=== PATIENT | male | born 1945 | race Caucasian/White ===

== ENCOUNTER → 2017-03-06 | Outpatient (CLI) | payer OTHER ==
[~2017-03-06] MED LIST: ASPI-1085 PO; BILB30CA2 PO; CHOL100055 PO; GRAP50CA5 PO; LISI-127 PO; MULT1CAP PO; OMEG1CAP79 PO; PRAV40TA3 PO; PYGEUM PO; TAMS0.4C47 PO; [UNRECOGNIZED DRUG - CODE] PO
== END ==
LOC: IMA.MDS 14:31
PROVIDERS: ATTEND Family Medicine
DX: M17.0 Bilateral primary osteoarthritis of knee (principal)

== ENCOUNTER 2017-11-10 07:30 | Inpatient (IN) ==
[2017-11-19] MEDS ORDERED: FAMOTIDINE PB 20 MG/50 ML BAG IV ONE (06:00)
[2017-11-19] MEDS ORDERED: METOCLOPRAMIDE 10mg/2ml INJECTION IVP ONE (06:00)
[2017-11-19] MEDS ORDERED: MELOXICAM 15 MG TABLET PO ONE (06:00)
[2017-11-19] MEDS ORDERED: TRANEXAMIC ACID 1,000 MG in NS 100 ML IV ONE ×2 (06:00→07:00)
[2017-11-19] MEDS ORDERED: DEXAMETHASONE 4 MG/ML INJECTION IVP ONE (06:00)
[2017-11-19] MEDS ORDERED: LIDOCAINE 1% (10mg/ml) 2mL INJ PF SDV ID ONE (06:00)
[2017-11-19] MEDS ORDERED: ONDANSETRON 4 MG/2 ML INJECTION IVP ONE (06:00)
[2017-11-19] MEDS ORDERED: ACETAMINOPHEN 500 MG TABLET PO ONE (06:00)
[2017-11-19] MEDS ORDERED: EPINEPHrine PF 0.25 MG, BUPIVACAINE 0.25% PF 30 ML, MORPHINE SULFATE 15 MG, KETOROLAC I... OPSITE ONE (08:00)
[2017-11-19 09:32] VITALS: BMI 26.4
[2017-11-19] MEDS: LR 1,000 ML IV SCH ×2 (10:03→13:00)
[2017-11-19] MEDS: NOZIN NASAL SWAB NAS SCH ×5 (10:05→22:09)
--- NOTE | 2017-11-19 10:28 | Anesthesia Preoperative Report ---
Anesthesia Preoperative Record - Date and Time Date: 11/19/17 Preoperative Diagnosis: Rt YORDY M16.11 Proposed Procedure: Right THR NPO Since Date: 11/19/17 NPO Since Time: 00:00 Allergies/Adverse Reactions: Allergies Allergy/AdvReac Type Severity Reaction Status Date / Time midazolam AdvReac Unknown N/V Verified 11/19/17 09:56 - Vital Signs Vital Signs: Temperature 97.9 F 11/19/17 09:31 Pulse Rate 69 11/19/17 09:31 Respiratory Rate 13 11/19/17 09:31 Blood Pressure 126/78 11/19/17 09:31 Pulse Oximetry 94 11/19/17 09:31 Height and Weight: Height 6 ft Weight 88.4 kg Body Mass Index 26.4 - Medications Inpatient Medications: Current Medications Cefazolin Sodium (Kefzol) 2 g IVP PREOP ONE Stop: 11/19/17 11:01 Lactated Ringer's (Lactated Ringers) 1,000 mls @ 50 mls/hr IV .Q20H [facility] Last Admin: 11/19/17 10:03 Dose: 50 mls/hr Isopropyl Alcohol (Nozin Nasal Swab) 1 each TERI Q1M JOSÉ MIGUEL Stop: 11/19/17 14:48 Last Admin: 11/19/17 10:07 Dose: 1 each Sodium Chloride (Iv Flush) 10 - 80 ml IV PRN PRN PRN Reason: [place] Home Medications: Home Medications Medication Instructions Recorded Confirmed Type Lisinopril 10 mg PO Q2D #0 11/22/10 11/19/17 History Aspirin [Aspirin EC] 81 mg PO DAILY #0 tab 10/29/16 11/19/17 History Bilberry Fruit Extract [Bilberry 60 mg PO DAILY #0 10/29/16 11/19/17 History Extract] Cholecalciferol (Vitamin D3) 1 cap PO DAILY #0 10/29/16 10/22/17 History (Vitamin D) Multivit with Minerals/Herbs 1 tab PO DAILY #0 10/29/16 11/19/17 History [Men's Biomultiple Tablet] [place]-3/Dha/Epa/Fish Oil [Fish Oil 1,000 mg PO DAILY #0 cap 10/29/16 11/19/17 History 1,000 mg Softgel] Tamsulosin HCl 0.4 mg PO HS #0 10/29/16 11/19/17 History Is Patient on Beta Naomi?: No - Medical History Respiratory: Reports: Other (h/o velazquez's lung per h&p) Cardiovascular: Reports: Hypertension Gastrointestional: Reports: Gastroesophageal Reflux Disease (occasional no nocturnal sx) Neuro/Musculoskeletal: Reports: HX.MS.OSAR (hip, knees, hands) Other History: Reports: Anesthesia Reactions (nausea with Versed) - Surgical History GI Surgery/Treatments: Reports: Colonoscopy Surgery/Treatment: REPORT: Transurethral Resection (TURP) Musculoskeletal Surgery/Tx: Reports: Knee Arthroscopy (left and right), Total Knee Replacement (left X2) Reproductive Surgery/Treatment: Reports: Vasectomy Anesthesia Reactions: Nausea and Vomiting (with versed) Hx Family Anesthesia Reaction: No History of Motion Sickness: No - Social History Smoking Status: Never smoker Substance Use Type: does not use Alcohol Intake Frequency: does not drink - Pertinent Findings EKG: Sinus Rhythm - Physical Exam Respiratory Exam: Present: lungs clear, bilateral breath sounds equal Cardiovascular Exam: Present: regular rate and rhythm, no murmur - Airway Assessment Mallampati Score: III TMD: 2 Fingerbreadths Neck Extension: good Overall Assessment: may be difficult intubation (small mouth opening) - ASA ASA Score: 2 - Plan Anesthesia: General TIVA, General Inhalation Gases - Discussion Discussion: Discussed risks/options/alternatives of anesthesia and questions answered. Patient consents. Nursing pain assessment noted. Present for Discussion: spouse Attestation Statement: Prior to the delivery of any anesthetic medication, I examined the patient, developed the plan, obtained the patient's consent and discussed the risk and benefits of the procedure with the patient/guardian. - Additional Information Seen by Anesthesia: Yes
[2017-11-19] MEDS ORDERED: VANCOMYCIN 1,000 MG INJECTION ONE (10:41)
[2017-11-19] MEDS ORDERED: ANESTHESIA MIXTURE 50 ML IV ONE (10:45)
[2017-11-19] MEDS ORDERED: FentaNYL 100 MCG/2 ML INJECTION ONE (10:47)
[2017-11-19] MEDS ORDERED: PROPOFOL 500 MG/50 ML VIAL ONE (10:52)
[2017-11-19] MEDS ORDERED: ROCURONIUM 50 MG/5 ML INJECTION IVP ONE (10:52)
[2017-11-19] MEDS ORDERED: LIDOCAINE 2% (100mg/5mL) PF 5ml vl ONE (10:52)
[2017-11-19] MEDS ORDERED: CEFAZOLIN 1 G INJECTION IVP ONE (11:00)
[2017-11-19] MEDS ORDERED: DESFLURANE 240ml LIQUID IH ONE (11:53)
[2017-11-19] MEDS ORDERED: PHENYLEPHRINE INJ 10 MG/ML VIAL IV ONE (12:56)
--- NOTE | 2017-11-19 13:03 | Operative Note ---
- Procedure Preoperative Diagnosis: Right hip primary degenerative joint disease Postoperative Diagnosis: Same as preoperative diagnosis. Surgeon: Leatha Trevizo MD Counter Hand: Christiano Quintana Complications: None. Anesthesia: General Estimated Blood Loss: See Anesthesia Record. Fluids: Please see Anesthesia Record. Description of Procedure: Mr. Luna and his right hip were identified and marked in the preoperative holding area. He was brought back to the operating suite and spinal anesthetic was administered. He was then placed in a lateral decubitus position with his right hip up. The right lower extremity was prepped and draped in my normal sterile fashion. Timeout was performed. The Hookit robotic arm was used to assist with the surgery. A pelvic array was placed into the iliac crest through three small incisions. A direct superior approach was utilized. An approximately 13 cm incision was made in the skin and dissection carried down to the muscle fascia which was then split in line with skin incision. The short external rotators were identified and tagged and detached. A capsulotomy was performed and the hip dislocated. A femoral neck osteotomy was performed at the pre-templated level measuring down from the femoral head 54 mm. The head was removed and acetabulum exposed. He had very large osteophytes both anteriorly and posteriorly. The posterior osteophytes broke off in the acetabulum during a hip dislocation. Labrum was removed. The acetabulum was then registered with the robot. The robotic arm was then used to ream with a 57 reamer. The robot then was again used to place a 58 Trident cup in 40 of tilt and 25 of anteversion. A liner was then placed. The proximal femur was exposed and prepared with a cookie cutter followed by reaming and broaching to a size 6. We trialed with a 0 head. He was very stable but long so retired with a -5 head and this was much better. He felt stable at the knees and was just 1 mm long compared to the opposite hip. After thorough irrigation a final Accolade 2 size 6 stem with 127 neck was placed. Leg length and offset were checked with the robot and were good. A final -5 ceramic 36 mm head was placed and the hip reduced. Betadine solution was used to irrigate throughout the case. It was followed by normal saline irrigation. Joint cocktail was injected throughout soft tissue. The capsulotomy was repaired with Ethibond. Short external rotators were also repaired with Ethibond. 1 g of vancomycin powder was placed into the wound. The muscle fascia was then repaired with #1 Vicryl. I then left my marketing communications assistant to close the subcutaneous tissue with 2-0 Vicryl followed by running 4-0 Monocryl skin followed by Dermabond and a sterile dressing. The patient with any placed back into supine position and taken to recovery room in the care of anesthesia.
[2017-11-19] MEDS ORDERED: GLYCOPYRROLATE 0.4 MG/2 ML INJECTION ONE (13:11)
[2017-11-19] MEDS ORDERED: NEOSTIGMINE 10 MG/10 ML INJECTION ONE (13:11)
[2017-11-19] MEDS ORDERED: MORPHINE SULFATE 10 MG/ML VIAL ONE (13:23)
[2017-11-19] MEDS ORDERED: DiphenhydrAMINE 50 MG/ML INJECTION IVP PRN ×2 (13:41→14:26)
[2017-11-19] MEDS ORDERED: ONDANSETRON 4 MG/2 ML INJECTION IVP PRN ×2 (13:41→14:26)
[2017-11-19] MEDS: MORPHINE SULFATE 10 MG/ML VIAL IVP PRN ×2 (13:49→14:03)
--- NOTE | 2017-11-19 14:20 | Anesthesia Postoperative Note ---
- Date and Time Date: 11/19/17 Time: 14:19 - Status Patient Participated in Evaluation: Patient Participated in Person Vital Signs: Temperature 97.8 F 11/19/17 12:26 Pulse Rate 59 L 11/19/17 14:10 Respiratory Rate 16 11/19/17 14:10 Blood Pressure 111/58 11/19/17 14:10 Pulse Oximetry 93 11/19/17 14:10 Respiratory Function: Airway Patent Cardiovascular Function: Regular Pulse EKG: Sinus Rhythm Mental Status: Alert and Oriented Pain Intensity: 4 Hydration: IV Infusing Complications During Recover: None Apparent - Follow-Up Instructions Instructions: Per Surgeon
[2017-11-19] MEDS ORDERED: NAPROXEN 220 MG TABLET PO PRN (14:26)
[2017-11-19] MEDS ORDERED: NOZIN NASAL SWAB NAS ONE (14:26)
[2017-11-19] MEDS ORDERED: Oxycodone *IR* 5 MG TABLET PO PRN (14:26)
[2017-11-19] MEDS ORDERED: DiphenhydrAMINE 25 MG CAPSULE PO PRN (14:26)
[2017-11-19] MEDS ORDERED: LORazepam 1 MG TABLET PO PRN (14:26)
[2017-11-19] MEDS ORDERED: SALINE FLUSH 10ml SYRINGE IV PRN (14:31)
[2017-11-19] MEDS: NS 1,000 ML IV SCH (14:36)
--- NOTE | 2017-11-19 14:38 | XRay Report ---
Indication: postoperative image PROCEDURE: XR pelvis w/ 1 view RT hip: Encounter: Initial Comparison: October 19, 2017 Findings: Postoperative changes of right total hip replacement are seen. There is expected postoperative subcutaneous gas. No evidence of hardware failure or acute fracture. There is an oblique lucency seen in the posterior cortex of the proximal femoral diaphysis on the crosstable lateral view without cortical step-off. This is felt to represent a nutrient vessel. No retained radiopaque surgical instruments or sponges seen. Impression: New right total hip prosthesis without evidence of immediate complication. .
[2017-11-19] MEDS: DEXAMETHASONE 20 MG/5 ML INJECTION IVP SCH ×2 (14:44→22:10)
[2017-11-19] MEDS ORDERED: PNEUMOCOCCAL VAC ADMIN CHARGE INJ ONE (15:15)
[2017-11-19] MEDS ORDERED: PNEUMOCOCCAL 23 VACCINE 0.5ml INJECTION IM ONE (15:39)
[2017-11-19] MEDS: ACETAMINOPHEN 325 MG TABLET PO SCH ×2 (16:50→22:09)
[2017-11-19] MEDS: CEFAZOLIN 2 G in NS 100 ML IV SCH (18:25)
[2017-11-19] MEDS ORDERED: SCOPOLAMINE 1mg/3 days PATCH TD ONE (19:05)
[2017-11-19] MEDS ORDERED: SENNOSIDES 8.6 MG TABLET PO SCH (21:00)
[2017-11-19] MEDS: DOCUSATE SODIUM 100 MG CAPSULE PO SCH (22:10)
[2017-11-19] MEDS: ASPIRIN *EC* 81 MG TABLET PO SCH (22:10)
[2017-11-20] MEDS: NS 1,000 ML IV SCH ×2 (02:50→16:03)
[2017-11-20] MEDS: CEFAZOLIN 2 G in NS 100 ML IV SCH (02:57)
--- NOTE | 2017-11-20 04:07 | Consult Note ---
Consult Information - Data of Consult Consult date: 11/19/17 Requesting Physician: Beto Trevizo MD Primary Care Provider: Randy Escalera MD Family Provider: Randy Escalera MD - Consult Narrative Reason for consult: non sustained v tach History of present illness: This is a 72 y/o male who is relatively healthy who presents for an elective total right hip. The operative course was unremarkable. Post operatively the patient had a short run of non sustained wide complex tachycardia. No sx. The patient states that 2 or 3 years ago he had an episode of irregular heart rate and was evaluated including a stress test that was negative. He wore a holter moniter that was normal. At this time ortho attending has asked internal medicine to assess patient and to make further recommendations Past Medical History Patient Stated Medical History Hypertension Yes Sleep Apnea No Other Respiratory Yes: h/o velazquez's lung per h&p Gastroesophageal Reflux Yes: occasional no nocturnal sx Disease Hx Benign Prostatic Yes Hyperplasia Osteoarthritis Yes: hip, knees, hands Anesthesia Reactions Yes: nausea with Versed [facility] Medical History (Last Reviewed 10/19/17 @ 15:55 by Beto Trevizo MD) HTN (hypertension) (Acute Medical) Osteoarthritis (Acute Medical) Surgical History: R TKA replacement x2; L TKA x2; prostate surgery Family History: Family History (Last Reviewed 10/19/17 @ 15:55 by Beto Trevizo MD) Father Pacemaker Arthritis Family History Updates: as noted - Social History Smoking status: Never smoker Substance use type: does not use Alcohol intake frequency: does not drink Housing: house Household members: spouse Current occupational status: employed Current residence: Apartment/Private Home Review of Systems Review of systems: pateint denies headache, mild sore throat, no neck or jaw pain, no chest pain, no pnd, no orthopnea, no mcnally, patient is very active and continues to work out at least 3 days a week. Patient denies abdomen pain, no nausea/vomiting, no change inbm or urine. hx of BPH with TURP. no neuro concerns, no skin rashes. 12 point ROS neg except for outlined above. Does have pain to his right hip Medications Home Medications Medication Instructions Recorded Confirmed Type Lisinopril 10 mg PO Q2D #0 11/22/10 11/19/17 History Aspirin [Aspirin EC] 81 mg PO DAILY #0 tab 10/29/16 11/19/17 History Bilberry Fruit Extract [Bilberry 60 mg PO DAILY #0 10/29/16 11/19/17 History Extract] Cholecalciferol (Vitamin D3) 1 cap PO DAILY #0 10/29/16 10/22/17 History (Vitamin D) Multivit with Minerals/Herbs 1 tab PO DAILY #0 10/29/16 11/19/17 History [Men's Biomultiple Tablet] [place]-3/Dha/Epa/Fish Oil [Fish Oil 1,000 mg PO DAILY #0 cap 10/29/16 11/19/17 History 1,000 mg Softgel] Tamsulosin HCl 0.4 mg PO HS #0 10/29/16 11/19/17 History Allergies Allergy/AdvReac Type Severity Reaction Status Date / Time midazolam AdvReac Unknown N/V Verified 11/19/17 09:56 Exam Vital Signs: Temperature 97.2 F 11/19/17 14:40 Pulse Rate 93 11/19/17 23:07 Respiratory Rate 16 11/19/17 23:07 Blood Pressure 117/72 11/19/17 23:07 Pulse Oximetry 96 11/19/17 23:07 Telemetry Rhythm: Sinus Rhythm Height/Weight/BMI: Height 1.83 m Weight 88.9 kg Body Mass Index 26.4 - Constitutional Present: mild distress, well nourished, well developed, average body habitus, cooperative - Routine HEENT Exam Head: Present: normocephalic, atraumatic Eye: Present: EOMI, conjunctivae pink. Absent: scleral injection ENT: Present: mucous membranes moist - Routine Neck Exam Present: supple, full ROM - Routine Respiratory Exam Present: CTA bilaterally. Absent: rales, respiratory distress, rhonchi, stridor , wheezes - Routine Cardiovascular Exam Present: RRR, no murmur. Absent: S3 - Routine Abdominal Exam Present: soft, normoactive bowel sounds, non distended, non tender - Routine Extremities Exam Present: no edema. Absent: cyanosis Comments: dressing on right hip, not taken down - Routine Skin Exam Present: intact - Routine Neurological Exam Present: alert, oriented X3, CN II-XII intact, moving all extremities, normal tone, vision grossly intact, hearing grossly intact. Absent: motor deficit, abnormal gait - Routine Psychiatric Exam Present: normal affect, normal thought process Results - Labs CBC & Chem 7: 01/19/18 04:07 11/20/17 04:07 - ECG Data Tracing #1 sinus, with normal QRS. Assessment and Plan (1) Non-sustained ventricular tachycardia Current visit: Yes Status: Acute (2) Hypertension Current visit: No Status: Acute (3) Primary osteoarthritis of right hip Current visit: No Status: Acute (4) BPH (benign prostatic hyperplasia) Current visit: No Status: Acute (5) Status post total hip replacement, right Current visit: Yes Status: Acute Assessment and Plan: 1. non sustained wide complex tachycardia acute not POA: will make sure labs in am including magnesium. continue telemetry monitoring cycle enzymes, reassess in the am. hx of arrhythmia in the past not captured. patient with hx of HTN. patient will need echo at some point in time with stress test if structurally intact. reassess and consider card cx outpatient 2. s/p right total hip acute POA: per ortho 3. HTN chronic POA: on ACEinhib. monitor blood pressure and use as indicated 4. BPH chronic POA: monitor with narcotics. restart flomax when can 5. DVT ppx; per ortho DVT Prophylaxis: SCD's, other (ASA) Resuscitation Status: Full Code - Physician Narrative Physician: Emily Woodard MD, Kiara Schmitt MD Narrative: Date: 11/20/17 Time: 1100 INdication for consult-wide complex tachycardia HPI- Mr Luna had an elective R-YORDY on 11/19 followed by about 8 assx runs of wide complex tachycardia yesterday evening. Most of the events occurred over a 4 min period of time with rates of 140-150, the longest ws 60 seconds long. Pt experienced emesis at about the same time and reports feeling cold and shaking/ banging his feet together to stay awake. He denies CP, dyspnea, palpitations, or lightheadness. He has a hx of an irregular heart rate evaluated by Dr. Carbajal a couple years ago with an event monitor which was neg per pt report. He also had a stress test which was negative. This am pt feels fine and reports good pain control; he hopes to go home today. PMH/SH/FH/ROS-as previously reported by Dr. Gallego PE- NAD, alert, fluent speech; 118/70 70 97.0 PER, EOMI, conj clear, sclera anicteric, oroph clear resp non-labored, good airflow, breath sounds clear RRR, S1S2 Abd soft, non-tender, diminished bowel sounds ext without edema CN 3-12 grossly intact, sens intact to light touch x 4 ext cooperative, calm K 4.7, Mg 2.2, troponin <0.012, Hbg 13.8 12 lead ECG with NSR, rare PAC, no acute changes by my review A/P wide complex tachycardia hx HTN hyperglycemia Multiple strips reviewed by myself and d/w cardiology. Some are clearly artifact but others are less clear. Electrolytes OK Cardiology to see, echo ordered troponin and A1C added to am labs d/w Dr. Trevizo. Hospital Course Summary Disclaimer: The visit summary below is not to be considered part of the above Progress Note.
[2017-11-20] MEDS: NOZIN NASAL SWAB NAS SCH ×2 (05:40→13:16)
[2017-11-20 08:11] VITALS: RESP 16
[2017-11-20] MEDS: DOCUSATE SODIUM 100 MG CAPSULE PO SCH (08:20)
[2017-11-20] MEDS: ACETAMINOPHEN 325 MG TABLET PO SCH ×3 (08:21→17:10)
[2017-11-20] MEDS: ASPIRIN *EC* 81 MG TABLET PO SCH (08:22)
--- NOTE | 2017-11-20 08:56 | Orthopedic Progress Note ---
Date: Date: 11/20/17 Time: 852 Subjective/Severity of Illness: Mr Luna is doing great this AM. He had a run of V-tach and the hospitalist service evaluated him. His troponin was normal and had no further events. Denies ever having any CP or dyspnea. He has been up with good tolerance. Dressing is dry. Labs stable. He is hopeful to go home today. Orthopedic Objective PO Vital signs: Temperature 97.0 F 11/20/17 08:00 Pulse Rate 70 11/20/17 08:00 Respiratory Rate 16 11/20/17 08:00 Blood Pressure 118/68 11/20/17 08:00 Pulse Oximetry 95 11/20/17 08:00 Height and Weight: Height 6 ft Weight 195 lb 15.855 oz Body Mass Index 26.4 - Constitutional General Appearance: Present: alert, cooperative, no acute distress - Respiratory Exam Present: non-labored - Extremities Exam Extremities: Present: pulses intact. Absent: calf tenderness - Surgical Site Incision: Mepilex dressing intact, no drainage - Neurological Exam Present: no deficits - Psychiatric Exam Present: alert, normal affect - Labs Result Diagrams: 11/20/17 04:07 11/20/17 04:07 Abnormal lab results 11/19/17 11/19/17 11/20/17 Range/Units 20:53 20:53 04:07 WBC 14.5 H (4.5-11.0) T/MM3 Neutrophils % (Manual) 98.0 H (33-66) % Lymphocytes % (Manual) 2.0 L (23-45) % Neutrophils # (Manual) 14.2 H (1.8-7.7) T/MM3 Lymphocytes # (Manual) 0.3 L (1-4.8) T/MM3 Potassium 5.1 H (3.6-5) MEQ/L BUN 28.0 H 27.0 H (9-20) MG/DL BUN/Creatinine Ratio 28 H 30 H (6-26) RATIO Glucose 195 H 156 H (75-110) MG/DL H & H 11/19/17 11/20/17 Range/Units 20:53 04:07 Hgb 14.9 13.8 (13.5-17.5) GM/DL Hct 44.9 41.7 (41-53) % Orthopedic Assessment and Plan (1) Primary osteoarthritis of right hip Status: Acute Assessment and Plan: Aspirin protocol for VTE prophylaxis. SCD's. PT/OT services to improve independent function. Hospitalist service to evaluate cardiac status and give recommendations. Cont telemetry for now. F/U in ortho clinic 3 weeks. Out pt therapy has been arranged. Discharge Planning per Case Management. - Anticoagulation Therapy Anticoagulation: ASA 81 mg PO BID x6 weeks Hospital Course Summary Disclaimer: The visit summary below is not to be considered part of the above Progress Note.
[2017-11-20] MEDS ORDERED: POLYETHYL GLYCOL 3350 17gm PACKET PO SCH (09:00)
--- NOTE | 2017-11-20 13:01 | Cardiology Consult Note ---
<Bharati Borjas - Last Filed: 11/24/17 10:41> History of Present Illness Consult date: 11/20/17 Requesting physician: Emily Woodard Chief complaint: telemetry changes History of present illness: Marin is a 72 year old male who is known to Dr. Carbajal with a history of palpitations, HTN and HLD who recently underwent an elective total right hip replacement. The operative course was unremarkable. Post operatively the patient had a short run of non sustained wide complex tachycardia. No sx. He wore a DORIS monitor in November of 2015 which showed SR with occasional asymptomatic PVCs, one couplet. Echo at that time showed EF 65%, mild LVH, NWMA , diastolic dysfunction, mild LAE, trace MR/PI, PAP 36mmHg. PFS Patient Stated Medical History Hypertension Yes Sleep Apnea No Other Respiratory Yes: h/o velazquez's lung per h&p Gastroesophageal Reflux Yes: occasional no nocturnal sx Disease Hx Benign Prostatic Yes Hyperplasia Osteoarthritis Yes: hip, knees, hands Anesthesia Reactions Yes: nausea with Versed Clinic Medical History (Last Reviewed 10/19/17 @ 15:55 by Beto Trevizo MD) HTN (hypertension) (Acute Medical) Osteoarthritis (Acute Medical) Surgical History: R TKA replacement x2; L TKA x2; prostate surgery Family History: Family History (Last Reviewed 10/19/17 @ 15:55 by Beto Trevizo MD) Father Pacemaker Arthritis Paternal uncle - MD - Social History Smoking status: Never smoker Substance use type: does not use Alcohol intake frequency: does not drink Household members: spouse Current residence: Apartment/Private Home Medications Home Medications Medication Instructions Recorded Confirmed Type Lisinopril 10 mg PO Q2D #0 11/22/10 11/19/17 History Aspirin [Aspirin EC] 81 mg PO DAILY #0 tab 10/29/16 11/19/17 History Bilberry Fruit Extract [Bilberry 60 mg PO DAILY #0 10/29/16 11/19/17 History Extract] Cholecalciferol (Vitamin D3) 1 cap PO DAILY #0 10/29/16 10/22/17 History (Vitamin D) Multivit with Minerals/Herbs 1 tab PO DAILY #0 10/29/16 11/19/17 History [Men's Biomultiple Tablet] [place]-3/Dha/Epa/Fish Oil [Fish Oil 1,000 mg PO DAILY #0 cap 10/29/16 11/19/17 History 1,000 mg Softgel] Tamsulosin HCl 0.4 mg PO HS #0 10/29/16 11/19/17 History Allergies Allergy/AdvReac Type Severity Reaction Status Date / Time midazolam AdvReac Unknown N/V Verified 11/19/17 09:56 Exam Vital signs: Temperature 97.0 F 11/20/17 11:39 Pulse Rate 64 11/20/17 11:39 Respiratory Rate 16 11/20/17 11:39 Blood Pressure 127/65 11/20/17 11:39 Pulse Oximetry 97 11/20/17 11:39 Results 11/20/17 04:07 11/20/17 04:07 Cardiac Enzymes 11/19/17 11/20/17 Range/Units 20:53 04:05 AST 47 (17-59) U/L Troponin I < 0.012 < 0.012 (0-0.12) ng/ml CBC 11/19/17 11/20/17 Range/Units 20:53 04:07 WBC 14.5 H (4.5-11.0) T/MM3 RBC 4.89 (4.50-5.90) M/MM3 Hgb 14.9 13.8 (13.5-17.5) GM/DL Hct 44.9 41.7 (41-53) % Plt Count 229 (130-400) T/MM3 Neut # (Auto) Not performed Lymph # (Auto) Not performed [place] # (Auto) Not performed Eos # (Auto) Not performed Baso # (Auto) Not performed Comprehensive Metabolic Panel 11/19/17 11/20/17 Range/Units 20:53 04:07 Sodium 140 140 (134-144) MEQ/L Potassium 5.1 H 4.7 (3.6-5) MEQ/L Chloride 105 105 (98-107) MEQ/L Carbon Dioxide 25 27 (22-30) MEQ/L BUN 28.0 H 27.0 H (9-20) MG/DL Creatinine 1.0 0.9 (0.8-1.5) MG/DL Glucose 195 H 156 H (75-110) MG/DL Calcium 9.3 9.0 (8.4-10.2) MG/DL AST 47 (17-59) U/L ALT 49 (21-72) U/L Alkaline Phosphatase 97 (38-126) U/L Total Protein 7.4 (6.3-8.2) G/DL Albumin 4.2 (3.5-5.0) G/DL Intake and Output 11/19/17 11/20/17 11/20/17 22:59 06:59 14:59 Intake Total 905.333 / 416.594 0505.333 / 5916.552 4422.333 / 1029.333 Output Total 1050 / 1050 Balance -144.667 / -719.895 8213.333 / 0887.986 4760.333 / 1029.333 Intake: IV 405.333 / 405.333 741.333 / 741.333 321.333 / 321.333 Cefazolin 2 g In Ns 100 ml @ 100 / 100 100 / 100 200 mls/hr IV Q8H JOSÉ MIGUEL Rx#: [id number] Ns 1,000 ml @ 80 mls/hr IV . 305.333 / 305.333 641.333 / 641.333 321.333 / 321.333 [id number] JOSÉ MIGUEL Rx#:[id number] Oral 500 / 500 300 / 300 708 / 708 Output: Emesis 500 / 500 Urine Amount (Catheter) 550 / 550 Other: Urine Appearance Clear Urine Color Dark Yellow Urine Odor Normal Emesis Description Bile Undigested Food # Voids 1 # Unmeasured Emesis Episodes 1 Assessment and Plan - Assessment and Plan (1) Mixed hyperlipidemia Status: Chronic (2) Status post total hip replacement, right Status: Acute (3) Hypertension Status: Chronic - Assessment and Plan No V Tach seen on telemetry, all artifact. Stable to discharge today Thank you for allowing us to participate in the care of this patient. Hospital Course Summary Disclaimer: The visit summary below is not to be considered part of the above Progress Note. <Giorgio Carbajal - Last Filed: 11/25/17 13:33> [facility] Patient Stated Medical History Hypertension Yes Sleep Apnea No Other Respiratory Yes: h/o velazquez's lung per h&p Gastroesophageal Reflux Yes: occasional no nocturnal sx Disease Hx Benign Prostatic Yes Hyperplasia Osteoarthritis Yes: hip, knees, hands Anesthesia Reactions Yes: nausea with Versed Clinic Medical History (Last Reviewed 10/19/17 @ 15:55 by Beto Trevizo MD) HTN (hypertension) (Acute Medical) Osteoarthritis (Acute Medical) Family History: Family History (Last Reviewed 10/19/17 @ 15:55 by Beto Trevizo MD) Father Pacemaker Arthritis Exam Vital signs: Temperature 98.1 F 11/20/17 15:16 Pulse Rate 79 11/20/17 16:00 Respiratory Rate 16 11/20/17 15:16 Blood Pressure 120/67 11/20/17 15:16 Pulse Oximetry 96 11/20/17 15:16 Results 11/20/17 04:07 11/20/17 04:07 Assessment and Plan - Attestation Attestation Narrative: 11/25/17 13:33 Recommendation After examining the patient I agree with the above assessment. I am involved in the formulation of the patient's plan of care. - Assessment and Plan (1) Hypertension Status: Chronic (2) Status post total hip replacement, right Status: Acute (3) Mixed hyperlipidemia Status: Chronic Hospital Course Summary Disclaimer: The visit summary below is not to be considered part of the above Progress Note.
[2017-11-20] MEDS ORDERED: SENNOSIDES 8.6 MG TABLET PO PRN (13:10)
--- NOTE | 2017-11-20 14:32 | Discharge Summary ---
Orthopedic Discharge Info Date of admission: 11/19/17 09:11 Primary care physician: Randy Escalera MD Attending Physician: Beto Trevizo MD Consults: 11/19/17 09:29 Consult to Anesthesiology [CONS] Routine Reason For Exam: Preoperative Assessment 11/19/17 14:26 Case Management Consult [CONS] Routine Reason For Exam: Discharge Planning DME-Walker [CONS] Routine Height: 6 ft Weight: 194 lb 14.218 oz Total Joint Outpatient Therapy [CONS] Routine Comment: Remove dressing in 2 weeks 11/19/17 20:23 Physician Consult [CONS] Routine Consulting Provider: Emily Woodard Reason For Exam: V-tach Ordering Provider has Notified Welfare Supervisor: No 11/20/17 10:58 Physician Consult [CONS] Routine Consulting Provider: Giorgio Carbajal Reason For Exam: abn telemetry strips Ordering Provider has Notified Welfare Supervisor: Yes - Discharge Diagnosis (1) Primary osteoarthritis of right hip Status: Acute - Procedures Procedures: Rt YORDY 11/19/17 - Laboratory Result Diagrams: 11/20/17 04:07 11/20/17 04:07 Laboratory: Abnormal lab results 11/19/17 11/19/17 11/20/17 Range/Units 20:53 20:53 04:05 WBC 14.5 H (4.5-11.0) T/MM3 Neutrophils % (Manual) 98.0 H (33-66) % Lymphocytes % (Manual) 2.0 L (23-45) % Neutrophils # (Manual) 14.2 H (1.8-7.7) T/MM3 Lymphocytes # (Manual) 0.3 L (1-4.8) T/MM3 Potassium 5.1 H (3.6-5) MEQ/L BUN 28.0 H (9-20) MG/DL BUN/Creatinine Ratio 28 H (6-26) RATIO Glucose 195 H (75-110) MG/DL Hemoglobin A1c 5.8 H (4.0-5.7) % 11/20/17 Range/Units 04:07 WBC (4.5-11.0) T/MM3 Neutrophils % (Manual) (33-66) % Lymphocytes % (Manual) (23-45) % Neutrophils # (Manual) (1.8-7.7) T/MM3 Lymphocytes # (Manual) (1-4.8) T/MM3 Potassium (3.6-5) MEQ/L BUN 27.0 H (9-20) MG/DL BUN/Creatinine Ratio 30 H (6-26) RATIO Glucose 156 H (75-110) MG/DL Hemoglobin A1c (4.0-5.7) % H & H 11/19/17 11/20/17 Range/Units 20:53 04:07 Hgb 14.9 13.8 (13.5-17.5) GM/DL Hct 44.9 41.7 (41-53) % Orthopedic Discharge HPI - HPI Comments This patient was admitted for elective surgical tx of end stage degenerative joint disease that failed to respond to conservative treatment. Further details of this is found in the admission H&P. Orthopedic Hospital Course Hospital course: 11/20/17 14:29 After appropriate preoperative clearance and signing of operative consent, the patient was given IV antibiotics, according to orthopedic protocol. The patient was taken to the operating room and underwent elective joint arthroplasty. Following surgery, antibiotics were discontinued less than 24 hours according to joint protocol. Appropriate anticoagulants were initiated and SCDs added for DVT prevention.The immediate post operative course was unremarkable. During the night, the patient had a short run of non sustained wide complex tachycardia. No sx. Hospitalist service was consulted and later Dr Bernal was asked to see the pt. The dressing was clean, dry, and intact. Pain control was obtained via multimodal approach. Bowel motivation addressed with scheduled and PRN medications. Early mobilization was initiated through PT services. Discharge arrangements made by a collaborative effort between the patient and Case Management. Follow-up is scheduled in 2-3 weeks. Discharge instructions given by orthopedic providers and nursing staff at discharge. Discharge condition was good. Discharge Plan - Med Rec/Dispo Referrals/Follow Up: Beto Trevizo MD [Physician] - 12/14/17 2:15 pm Joseuvmikael Instructions: [facility] Postop Instructions Additional Instructions: [facility] ON 11/23/2017 AT 2:30PM FOR PHYSICAL THERAPY INGRID. PHONE [phone] Prescriptions: New RX: Acetaminophen [Tylenol] 650 mg PO QID tablet RX: Aspirin *EC* [Ecotrin] 81 mg PO BID tablet RX: Docusate Sodium [Colace] 100 mg PO BID capsule RX: Milk of Magnesia [Mom] 30 ml PO DAILY udc RX: Oxycodone *IR* [Roxicodone *Ir*] 5 - 10 mg PO Q3H PRN #60 tab PRN Reason: [facility] Pain RX: PEG 3350 17gm PACKET [Miralax] 17 gm PO DAILY packet Continue RX: Tamsulosin HCl 0.4 mg PO HS #0 RX: Aspirin [Aspirin EC] 81 mg PO DAILY #0 tab RX: Bilberry Fruit Extract [Bilberry Extract] 60 mg PO DAILY #0 RX: Lisinopril 10 mg PO Q2D #0 RX: [place]-3/Dha/Epa/Fish Oil [Fish Oil 1,000 mg Softgel] 1,000 mg PO DAILY # 0 cap Cholecalciferol (Vitamin D3) (Vitamin D) 1 cap PO DAILY #0 RX: Multivit with Minerals/Herbs [Men's Biomultiple Tablet] 1 tab PO DAILY #0 ergocalciferol (vitamin D2) 50,000 unit capsule 50,000 unit PO DAILY #2 cap - Disposition 01 Discharged Home, Self-Care - Dismissal Complete Discharge Instructions are:: Incomplete
[2017-11-20 15:18] VITALS: BP 120/67; TEMP 98.1; O2SAT 96
[2017-11-20 16:03] VITALS: PULSE 79
--- NOTE | 2017-11-21 12:34 | Echocardiogram ---
DATE OF PROCEDURE November 20, 2017 This is a two-dimensional echo with spectral Doppler, color-flow and M-mode. It was obtained in a patient with dysrhythmias. Left atrial dimension is increased. Left ventricular end-diastolic dimension is normal. Left ventricular wall thickness is normal. LV systolic function is normal with ejection fraction of 67%. Right atrium is normal. Right ventricle is normal. Aortic root dimension is normal. Mitral valve is morphologically normal. Aortic valve appears to be normal. Tricuspid valve shows mild tricuspid regurgitation with normal estimated pulmonary artery systolic pressure of 23. Pulmonary valve shows trace of pulmonary insufficiency. There is no pericardial effusion. IMPRESSION 1. Normal LV systolic function with ejection fraction of 67%. 2. Mild tricuspid regurgitation with normal estimated pulmonary artery systolic pressure of 23. 3. Trace of pulmonary insufficiency. 4. Left atrial dilation. MTDD
[2017-11-21] MEDS ORDERED: BISACODYL 10 MG SUPPOSITORY RECTALLY SCH (20:00)
== END 2017-11-20 17:45 | disposition home or self-care (01) | DRG 470 ==
LOC: NMC.PERIOP 11-19 09:11 → SRG 11-19 09:58
PROVIDERS: ADMIT Orthopaedic Surgery; ATTEND Orthopaedic Surgery